=== PATIENT | male | born 1980 | race Caucasian/White ===

== ENCOUNTER 2018-10-23 13:17 | Emergency (ER) | payer SELFPAY ==
[2018-10-23] MEDS: DIPHTH/TET/ACEL PERTUSS (ADULT) 0.5 ML VIAL IM* (13:49)
[2018-10-23] MEDS: LIDOCAINE 1% (MDV) 20 ML INJ SC (13:49)
== END 2018-10-23 15:38 | disposition home or self-care (01) ==
LOC: FTE 15:38
DX: S61.211A Laceration without foreign body of left index finger without damage to nail, initial encounter (principal); E11.9 Type 2 diabetes mellitus without complications; W26.0XXA Contact with knife, initial encounter; Y92.9 Unspecified place or not applicable
CPT/HCPCS: 12002; 90715; 99283-25

== ENCOUNTER 2018-10-25 18:19 | Emergency (ER) | payer SELFPAY | END 2018-10-25 20:03 | disposition home or self-care (01) | LOC: FTE 18:19 | DX: Z48.01 Encounter for change or removal of surgical wound dressing (principal); E11.9 Type 2 diabetes mellitus without complications | CPT/HCPCS: 99281 ==